=== PATIENT | male | born 1955 ===

== ENCOUNTER 2019-11-24 09:00 | Outpatient (CLI) | payer OTHER ==
[2019-11-24 09:39] LABS: Chloride 107 mmol/L (98-107); Sodium 142 mmol/L (136-145)
[2019-11-24 09:40] LABS: Anion Gap 16 mmol/L (10-20); BUN (Urea Nitrogen) 55 mg/dL (8.4-25.7); Calc. Creatinine Clearance 0 mL/min (70-130); Calcium 7.8 mg/dL (7.8-10.44); Carbon Dioxide 23 mmol/L (23-31); Estimated GFR-MDRD 40; Glucose 110 mg/dL (80-115)
== END 2019-11-24 09:01 | disposition home or self-care (01) ==
LOC: NAV LABSP 09:00 → EDSTATUS 12:02
DX: K74.60 Unspecified cirrhosis of liver (principal)
CPT/HCPCS: 80048